=== PATIENT | female | born 1990 | race Caucasian/White ===

== ENCOUNTER 2017-07-19 03:10 | Inpatient (IN) ==
[2017-07-19] MEDS ORDERED: TERBUTALINE SULFATE 1 MG/1 ML SDV SUBCUT PRN (03:39)
[2017-07-19] MEDS ORDERED: Nalbuphine Inj 20 MG/ML Ampule IVP PRN ×2 (03:39→04:34)
[2017-07-19] MEDS ORDERED: Phenylephrine Inj 50 MCG in Normal Saline Flush 0.5 ML IVP PRN (03:39)
[2017-07-19] MEDS ORDERED: ONDANSETRON 4 MG/2 ML VIAL IVP PRN ×3 (03:39→08:44)
[2017-07-19] MEDS ORDERED: MISOPROSTOL 200 MCG TABLET RECTAL PRN (03:39)
[2017-07-19] MEDS ORDERED: LIDOCAINE HCL 2 % 10 ML JELLY URO-JECT TOPICAL PRN ×2 (03:39→04:34)
[2017-07-19] MEDS ORDERED: BUTORPHANOL TARTRATE 2 MG/1 ML VIAL IVP PRN (03:39)
[2017-07-19] MEDS ORDERED: CALCIUM CARBONATE 500 MG (TUMS) CHEWABLE TABLET PO PRN ×2 (03:39→04:34)
[2017-07-19] MEDS ORDERED: Carboprost Inj 250 MCG/ML AMP IM PRN (03:39)
[2017-07-19] MEDS ORDERED: diphenhydrAMINE 50 MG/1 ML VIAL IVP PRN ×2 (03:39→04:34)
[2017-07-19] MEDS ORDERED: LIDOCAINE W/ SODIUM BICARB 0.5 ML SYR SUBD PRN ×2 (03:39→08:44)
[2017-07-19] MEDS ORDERED: Metoclopramide Inj 10 MG/2 ML VIAL IV PRN (03:39)
[2017-07-19] MEDS ORDERED: CefOXitin Inj 2 GM in Sodium Chloride 0.9% 100 ML IV PRN (03:39)
[2017-07-19] MEDS ORDERED: Naloxone Inj 0.01 MG in Normal Saline Flush 1 ML IVP PRN (03:39)
[2017-07-19] MEDS ORDERED: METHYLERGONOVINE MALEATE 0.2 MG/1 ML VIAL IM PRN (03:39)
[2017-07-19] MEDS ORDERED: Lidocaine 1% 10 MG/ML - 20 ML VIAL SUBCUT PRN (03:39)
[2017-07-19] MEDS ORDERED: fentaNYL Inj 100 MCG/2 ML VIAL IV PRN (03:39)
[2017-07-19] MEDS ORDERED: CITRIC ACID/SODIUM CITRATE 30 ML CUP PO PRN (03:39)
[2017-07-19] MEDS ORDERED: ePHEDrine Inj 5 MG in Normal Saline Flush 1 ML IVP PRN (03:39)
[2017-07-19] MEDS ORDERED: FAMOTIDINE 20 MG/2 ML VIAL IVP PRN ×2 (03:39)
[2017-07-19] MEDS ORDERED: NALOXONE 0.4 MG/1 ML VIAL IVP PRN (03:39)
[2017-07-19] MEDS ORDERED: OXYTOCIN 10 UNIT/1 ML IM PRN (03:39)
[2017-07-19] MEDS ORDERED: fentaNYL Inj 100 MCG/2 ML VIAL ONE ×2 (03:41→07:44)
[2017-07-19] MEDS ORDERED: Lactated Ringers-OB Dept 1,000 ML PRIMARY IV SCH (03:45)
[2017-07-19] MEDS ORDERED: Oxytocin 20 Units + LR 20 UNIT/1,000 ML BAG IV SCH ×2 (03:45→04:34)
[2017-07-19 03:47] LABS: Hematocrit [HCT] 39.8 % (37.0-47.0); Hemoglobin [HGB] 14.1 g/dL (12.0-16.0); MEAN CORPUSCULAR HEMOGLOBIN 31.2 PG (27-31); MEAN CORPUSCULAR HGB CONC 35.4 g/dL (33-37); MEAN CORPUSCULAR VOLUME 88.1 FL (81-99); MEAN PLATELET VOLUME 11.7 FL (7.4-12.2); RED BLOOD COUNT 4.52 10^6/uL (4.20-5.40)
[2017-07-19] MEDS ORDERED: ACETAMINOPHEN 325 MG TABLET PO PRN (04:34)
[2017-07-19] MEDS ORDERED: DIPH,PERTUSS,TET(ADACEL) VAC/PF 0.5 ML (Tdap) IM ONE (04:34)
[2017-07-19] MEDS ORDERED: Ondansetron ODT Tab 4 MG TAB PO PRN (04:34)
[2017-07-19] MEDS ORDERED: BENZOCAINE/MENTHOL SPRAY 56 GM BOTTLE TOPICAL PRN (04:34)
[2017-07-19] MEDS ORDERED: LANOLIN HPA 40 GM TUBE TOPICAL PRN (04:34)
[2017-07-19] MEDS ORDERED: diphenhydrAMINE 25 MG CAPSULE PO PRN (04:34)
[2017-07-19] MEDS ORDERED: GLYCERIN/WITCH HAZEL 1 BOX TOPICAL PRN (04:34)
--- NOTE | 2017-07-19 04:36 | OB.DEL.SUM ---
Delivery Note Delivery Summary: Caitlin is a 26 yo G4 now P4, at 39 2/7 weeks today, who has had an uneventful course. She is GBS negative. She presented to labor and delivery, breathing through contractions, at 0310 this morning. She was initially 7 cm and then was complete at 0349. I arrived to the unit at approximately 0355. Amniotomy was completed with return of clear fluid. Over a series of 2-3 pushes , the pt delivered the baby in ROLAND presentation over an intact perineum. The remainder of the baby delivered without complication. There was no nuchal cord. After delivery, the baby's nose and mouth were suctioned with the bulb suction and the cord was clamped and cut after 45 seconds. Baby was placed on mom's chest. Cord blood and cord gases were obtained. Time of delivery was 0406. The placenta delivered spontaneously and intact, with a 3 vessel cord. 20 mU of pitocin were infused. The vagina and perineum were examined and no lacerations were noted. Apgars were 9 at 1 minute and 10 at 5 minutes. Baby weighed 6#15.1 pounds and 19 3/4 inches long. Both mom and baby tolerated delivery well and are in stable condition at this time.
[2017-07-19] MEDS ORDERED: Lactated Ringers 1,000 ML PRIMARY IV ONE (05:16)
[2017-07-19] MEDS ORDERED: BUPIVACAINE 0.25% W/ EPI - 10 ML VIAL ONE (07:12)
[2017-07-19] MEDS: Lactated Ringers-OB Dept 1,000 ML PRIMARY IV SCH ×2 (07:30→17:02)
[2017-07-19] MEDS ORDERED: MIDAZOLAM 5 MG/1 ML ONE (07:44)
[2017-07-19] MEDS ORDERED: REMIFENTANIL 1 MG/1 ML IV ONE (07:44)
[2017-07-19] MEDS ORDERED: Sodium Chloride 0.9% vial 20 ML ONE (07:45)
[2017-07-19] MEDS ORDERED: LIDOCAINE MPF 2% - 5 ML (20 MG/1 ML) ONE (07:45)
[2017-07-19] MEDS ORDERED: Sodium Chloride 0.9% vial 10 ML ONE (07:47)
[2017-07-19] MEDS ORDERED: PROPOFOL 10 MG/1 ML (200 MG/20 ML) VIAL IV ONE (07:48)
[2017-07-19] MEDS ORDERED: CITRIC ACID/SODIUM CITRATE 30 ML CUP PO ONE (08:04)
[2017-07-19] MEDS ORDERED: Metoclopramide Inj 10 MG/2 ML VIAL IVP ONE (08:04)
[2017-07-19] MEDS ORDERED: FAMOTIDINE 20 MG/2 ML VIAL IVP ONE (08:04)
[2017-07-19] MEDS ORDERED: CefOXitin Inj 2 GM in Sodium Chloride 0.9% 100 ML IV ONE (08:04)
[2017-07-19] MEDS ORDERED: ATROPINE SULFATE 0.4 MG/1 ML VIAL IVP PRN (08:44)
[2017-07-19] MEDS ORDERED: fentaNYL Inj 100 MCG/2 ML VIAL IVP PRN (08:44)
[2017-07-19] MEDS ORDERED: HYDROmorphone 2 MG/1 ML IVP PRN (08:44)
[2017-07-19] MEDS ORDERED: Ondansetron ODT Tab 8 MG TAB PO PRN (08:44)
--- NOTE | 2017-07-19 08:46 | CRNA.PROGR ---
Post Anesthesia Phase II - Post Anesthesia Phase II Patient Stable and Discharged To: OB Care Assumed By Surgeon: Tess Serrano MD Temperature: 97.5 F Pulse Rate: 70 Respiratory Rate: 16 Pulse Ox: 100
--- NOTE | 2017-07-19 08:46 | CRNA.PROGR ---
Anesthesia Time - - Start date: 07/19/17 End date: 07/19/17 - Procedure/Recovery Time Anesthesia : Time In: 09:28 Anesthesia : Time Out: 10:11 Anesthesia : Total Time: 43 - Total Anesthesia Time Total Anesthesia Time (minutes): 43 - Other Weight: 99.79 kg Height: 5 ft 6 in Body Mass Index (BMI): 35.5 Physical Status: P2 Anesthesia Type: General Anesthesia : ET
--- NOTE | 2017-07-19 08:46 | CRNA.PROGR ---
Anesthesia Recovery Phase I - Post Anesthesia Evaluation Patient's Condition on Arrival in Phase I: Stable Patient's Condition on Arrival in Phase II: Stable Pain Level: 4 (medicated, with relief of discomfort.)
[2017-07-19] MEDS: DOCUSATE 100 MG CAPSULE PO SCH (09:02)
[2017-07-19] MEDS ORDERED: ONDANSETRON 4 MG/2 ML VIAL ONE (10:00)
--- NOTE | 2017-07-19 10:00 | OB.OP.NOTE ---
Operative Report Surgeon: Pao Anesthesia Type: General Anesthesia Provider: Maria Luz Barcenas CRNA Surgery Date: 07/19/17 Preoperative Diagnosis: P4 female desires permanent sterilization Postoperative Diagnosis: same Procedure: PPTL with Filshie Clips Estimated Blood Loss (mL): 0 Fluids: 500 ml Complications: None noted Findings at Surgery: Normal appearing ovaries and fallopian tubes Indications for the Procedure: 26 yo now P4 female delivered her fourth child early this AM. Pt. desired PPTL and signed her consent during . Description of Procedure: The patient was taken to the operating room and placed supine where general endotracheal anesthesia was administered. She was prepped and draped in the normal sterile fashion. Quarter percent Marcaine with epinephrine was injected just inferior to the umbilicus in the midline. Banning clamps were used to grasp the abdominal wall at the inferior margin of the umbilicus at the 5:00 and 7 o' clock position. A scalpel was used to created skin incision between the Banning clamps. Subcutaneous tissue and fascia were then divided with Bovie cautery and the peritoneal cavity was entered with Bovie cautery. A small Dionisio retractor was placed. The right fallopian tube was identified at the corneal region and followed to the fimbriated end with Forney clamps. A single Filshie clip was then applied to the mid isthmic portion of the tube. The left fallopian tube was then identified at the cornua and followed to the fimbriated end. A single Filshie clip was then applied to this tube at the mid isthmic portion. Good hemostasis was noted on both tubes. A Mariana retractor was then removed from the abdominal wall. The fascia was closed with a running 0 Vicryl suture. Subcutaneous Space was reapproximated with a running 3-0 Vicryl suture. The skin was enclosed with Dermabond. The wound was dressed appropriately. There were no complications at surgery. The patient left to recovery in good condition. Plan: Routine care.
[2017-07-19] MEDS ORDERED: KETOROLAC 30 MG/1 ML VIAL ONE (10:14)
[2017-07-19] MEDS ORDERED: Acetaminophen 1000mg Inj 1,000 MG/100 ML VIAL IV ONE (10:31)
[2017-07-19] MEDS: Lactated Ringers 1,000 ML PRIMARY IV SCH (10:45)
[2017-07-19] MEDS ORDERED: Prochlorperazine Edisylate Inj 10mg/2ml vial IVP PRN (11:09)
[2017-07-19] MEDS: HYDROcodone-APAP 5 MG -325 MG TABLET PO PRN ×2 (11:27→21:37)
[2017-07-19] MEDS: IBUPROFEN 800 MG TABLET PO PRN (17:47)
[2017-07-19 21:56] VITALS: O2SAT 98
[2017-07-20] MEDS: DOCUSATE 100 MG CAPSULE PO SCH ×2 (02:01→11:50)
[2017-07-20 04:40] LABS: Hematocrit [HCT] 33.5 % (37.0-47.0); Hemoglobin [HGB] 11.1 g/dL (12.0-16.0); MEAN CORPUSCULAR HEMOGLOBIN 30.2 PG (27-31); MEAN CORPUSCULAR HGB CONC 33.1 g/dL (33-37); MEAN PLATELET VOLUME 11.9 FL (7.4-12.2); RED BLOOD COUNT 3.68 10^6/uL (4.20-5.40)
[2017-07-20] MEDS: IBUPROFEN 800 MG TABLET PO PRN (06:50)
[2017-07-20] MEDS ORDERED: BUPivacaine Liposome/PF (Exparel) Inj 20ml vial INFIL ONE (07:00)
[2017-07-20] MEDS ORDERED: BUPivacaine Inj 0.5% PF (5mg/ml) 10ml vial ONE (07:00)
[2017-07-20 07:17] VITALS: BP 121/71; RESP 16; TEMP 98.3
[2017-07-20] MEDS ORDERED: Prenatal Multivitamin Tab 1 TAB TAB PO SCH ×2 (09:00)
[2017-07-20] MEDS: Lactated Ringers-OB Dept 1,000 ML PRIMARY IV SCH (11:41)
[2017-07-20] MEDS: Lactated Ringers 1,000 ML PRIMARY IV SCH (11:41)
--- NOTE | 2017-07-20 12:34 | OB.PROGRES ---
Subjective Post Op Day: 1 Pain Management: PO Perez Catheter: No Flatus: Yes Diet: Regular Feeding Method: Formula Feeding Ambulating: Yes Concerns / Additional Information: A little sore s/p PPTL yesterday, but otherwise feeling great. + voiding and flatus. Eating regular diet. Baby is bottle feeding. No concerns. Wishing to go home. Objective - General General Appearance: POSITIVE: No Acute Distress, Cooperative - Cardiovacular Cardiovascular Exam: POSITIVE: RRR, No Murmur Edema: +1 Pedal Edema Extremities: Negative Nellie's - Bilaterally - Respiratory Respiratory Exam: POSITIVE: Clear to Auscultation - Bilaterally, Breathing Non Labored - Abdomen Bowel Sounds: Present Assesstment / Plan (1) Status post normal vaginal delivery Current Visit: Yes Status: Acute (2) S/P tubal ligation Current Visit: Yes Status: Acute Assessment / Plan: -routine cares. -needs rubella booster secondary to equivocal rubella titer on panel. -bottle feeding. -rh positive. -d/c home today.
[2017-07-20] MEDS ORDERED: MMR VACCINE 12500 UNIT/0.5 ML SUBCUT ONE (12:42)
== END 2017-07-20 13:37 | disposition home or self-care (01) | DRG 767 ==
LOC: OBIP 03:40 → EDSTATUS 03:46
PROVIDERS: ADMIT Obstetrics & Gynecology; ATTEND Family Medicine